=== PATIENT | male | born 1965 | race Caucasian/White ===

== ENCOUNTER 2023-12-06 11:29 | Inpatient (IN) | payer BC ==
[2023-12-06 12:40] LABS: Absolute Lymphocytes (CBC) 1.7 K/uL (0.7-4.9); Hematocrit 40.6 % (39.6-49.0); Lymphocytes % 31.6 % (15.3-44.8); MCV 92.3 fL (80-100); MPV 6.4 fL (7.6-11.3); Platelets 249 thou/uL (152-406)
[2023-12-06 13:02] LABS: Albumin 3.8 g/dL (3.4-5.0); Bilirubin Direct 0.3 mg/dL (0-0.2); Bilirubin Indirect, Calculated 0.5 mg/dL (0.2-0.8); Bilirubin Total 0.8 mg/dL (0.2-1.0); Potassium 4.1 mEq/L (3.5-5.1); Protein, Total 7.6 g/dL (6.4-8.2); Troponin High Sensitivity 4.7 pg/mL (<58.9)
--- NOTE | 2023-12-06 13:04 | EDPHYS ---
Physician Documentation [facility] Name: José Luis Bearden Age: 58 yrs Sex: Male : 1965 Arrival Date: 12/06/2023 Time: 11:29 Bed 8 Private MD: Jason Hankins ED Physician Markell Boggs HPI: 12/06 11:43 This 58 yrs old Male presents to ER via Ambulatory with complaints of Abnormal Lab ec2 Results. 11:43 Patient is sent in by PCP due to concern for hyponatremia, patient had outpatient labs ec2 which showed a sodium of 118. Patient reports no specific concerns. Denies any nausea or vomiting, denies diarrhea symptoms. Does report that he does regularly drink approximately 4 beers to a 12 pack a day.. Historical: - Allergies: 11:41 No Known Allergies; iw - PMHx: 11:41 Hypertensive disorder; iw - PSHx: 11:41 hernia; iw - Immunization history:: Adult Immunizations not up to date. - Social history:: Smoking status: Patient reports use of chewing tobacco. ROS: 11:43 Constitutional: as per hpi ec2 Exam: 11:43 Constitutional: GEN: NAD Head: atraumatic Eyes: EOMI Ears: External ears are ec2 normal. CV: regular rate LUNGS: no respiratory distress ABD: non-distended SKIN: no evidence of rashes MSK: no evidence of trauma NEURO: moves all extremities equally Vital Signs: 11:43 BP 127 / 80; Pulse 97; Resp 16; Pulse Ox 100% on R/A; Weight 82.55 kg; Height 5 ft. 10 iw in. ; Pain 0/10; 11:43 Body Mass Index 26.11 (82.55 kg, 177.8 cm) iw 11:43 Pain Scale: Adult iw MDM: 11:42 Patient medically screened. ec2 11:43 ED course: Patient arrives today for evaluation of hyponatremia. Examination remarkable ec2 for nontoxic and appears otherwise in no acute distress. Will obtain lab work, EKG and further assess the patient complaint.. 12:41 ED course: EKG independently reviewed and interpreted by me, shows normal sinus rhythm, ec2 rate 93, no acute ST segment elevations, nonconcerning intervals. Motion artifact noted.. 13:03 Data reviewed: vital signs. ED course: Metabolic profile shows hyponatremia with a ec2 sodium of 121, CBC reassuring, LFT reassuring, troponin within normal ranges. Will admit for hyponatremia. Discussed case with Dr. Hankins who will admit the patient. . 12/06 11:43 Order name: Basic Metabolic Panel; Complete Time: 13:03 ec2 12/06 11:43 Order name: CBC with Diff; Complete Time: 13:03 ec2 12/06 11:43 Order name: Troponin HS; Complete Time: 13:03 ec2 12/06 11:43 Order name: LFT's; Complete Time: 13:03 ec2 12/06 11:43 Order name: UAM ec2 12/06 11:43 Order name: Osmolality, Serum ec2 12/06 13:06 Order name: Ethanol ec2 12/06 13:13 Order name: CBC with Automated Diff EDMS 12/06 13:13 Order name: Comprehensive Metabolic Panel EDMS 12/06 13:13 Order name: Urinalysis w/ reflexes EDMS 12/06 13:54 Order name: Uric Acid ld1 12/06 13:54 Order name: Urine Sodium Random ld1 12/06 13:54 Order name: Urine Potassium Random ld1 12/06 13:54 Order name: Cortisol ld1 12/06 13:54 Order name: TSH ld1 12/06 11:43 Order name: EKG; Complete Time: 11:43 ec2 12/06 13:13 Order name: CONS Physician Consult EDNM 12/06 11:43 Order name: Cardiac monitoring; Complete Time: 12:48 ec2 12/06 11:43 Order name: EKG - Nurse/Tech; Complete Time: 12:23 ec2 12/06 11:43 Order name: IV Saline Lock; Complete Time: 12:23 ec2 12/06 11:43 Order name: Labs collected and sent; Complete Time: 12:31 ec2 12/06 11:43 Order name: O2 Per Protocol; Complete Time: 12:15 ec2 12/06 11:43 Order name: O2 Sat Monitoring; Complete Time: 12:15 ec2 Administered Medications: 13:12 Drug: NS 0.9% IV 500 ml IV at bolus once Route: IV; Rate: bolus; Site: right ld1 antecubital; Disposition Summary: 12/06/23 13:04 Hospitalization Ordered Notes: Hospitalization Status: Inpatient Admission ec2 Provider: Jason Hankins ec2 [facility] ec2 Condition: Stable ec2 Problem: new ec2 Symptoms: are unchanged ec2 Bed/Room Type: Standard ec2 Room Assignment: 217(12/06/23 13:17) [facility] Diagnosis - Hypo-osmolality and hyponatremia ec2 Forms: - Medication Reconciliation Form ec2 - SBAR form ec2 - Leadership Thank You Letter ec2 Signatures: Dispatcher [employer] Katherin Chung RN RN Marcela Mayer RN RN 1 Teresa Foley [facility] Markell Boggs MD MD ec2 Corrections: (The following items were deleted from the chart) 11:49 11:43 Patient is sent in by PCP due to concern for hyponatremia, patient had outpatient ec2 labs which showed a sodium of 118. Patient reports no specific concerns. Denies any nausea or vomiting, denies diarrhea symptoms, denies substance use.. ec2 13:17 13:04 ec2 [facility]
--- NOTE | 2023-12-06 13:04 | ER ---
Nurse's Notes [facility] Name: José Luis Bearden Age: 58 yrs Sex: Male : 1965 Arrival Date: 12/06/2023 Time: 11:29 Bed 8 Private MD: Jason Hankins Diagnosis: Hypo-osmolality and hyponatremia Presentation: 12/06 11:40 Chief complaint: Patient states: had blood work done yesterday and they said my sodium iw level was low, was told to come to ER and be admitted , per Dr. Hankins. 11:41 Coronavirus screen: At this time, the client does not indicate any symptoms associated iw with coronavirus-19. Ebola Screen: Patient negative for fever greater than or equal to 101.5 degrees Fahrenheit, and additional compatible Ebola Virus Disease symptoms Patient denies exposure to infectious person. Patient denies travel to an Ebola-affected area in the 21 days before illness onset. No symptoms or risks identified at this time. Initial Sepsis Screen: Does the patient meet any 2 criteria? No. Patient's initial sepsis screen is negative. Does the patient have a suspected source of infection? No. Patient's initial sepsis screen is negative. Risk Assessment: Do you want to hurt yourself or someone else? Patient reports no desire to harm self or others. Onset of symptoms was December 06, 2023. 11:41 Method Of Arrival: Ambulatory iw 11:41 Acuity: IVAN 3 iw Historical: - Allergies: 11:41 No Known Allergies; iw - PMHx: 11:41 Hypertensive disorder; iw - PSHx: 11:41 hernia; iw - Immunization history:: Adult Immunizations not up to date. - Social history:: Smoking status: Patient reports use of chewing tobacco. Screenin:32 [facility] ED Fall Risk Assessment (Adult) History of falling in the last 3 months, ld1 including since admission No falls in past 3 months (0 pts). Abuse screen: Denies threats or abuse. Denies injuries from another. Nutritional screening: No deficits noted. Tuberculosis screening: No symptoms or risk factors identified. Assessment: 12:32 General: Appears in no apparent distress. comfortable, Behavior is calm, cooperative, ld1 appropriate for age. Pain: Denies pain. Neuro: Level of Consciousness is awake, alert, obeys commands, Oriented to person, place, time, situation. Cardiovascular: Capillary refill < 3 seconds Patient's skin is warm and dry. Respiratory: Airway is patent Respiratory effort is even, unlabored. GI: Abdomen is flat, non-distended. : No signs and/or symptoms were reported regarding the genitourinary system. EENT: No signs and/or symptoms were reported regarding the EENT system. Derm: No signs and/or symptoms reported regarding the dermatologic system. Musculoskeletal: No signs and/or symptoms reported regarding the musculoskeletal system. Vital Signs: 11:43 BP 127 / 80; Pulse 97; Resp 16; Pulse Ox 100% on R/A; Weight 82.55 kg; Height 5 ft. 10 iw in. ; Pain 0/10; 11:43 Body Mass Index 26.11 (82.55 kg, 177.8 cm) iw 11:43 Pain Scale: Adult iw ED Course: 11:30 Patient arrived in ED. mr 11:31 Jason Hankins MD is Private Physician. mr 11:31 Markell Boggs MD is Attending Physician. ec2 11:41 Triage completed. iw 11:43 Arm band placed on. iw 12:15 Marcela Mayer RN is Primary Nurse. ld1 12:32 Patient has correct armband on for positive identification. Placed in gown. Bed in low ld1 position. Call light in reach. Side rails up X2. cardiac monitor on. Pulse ox on. NIBP on. Door closed. Noise minimized. Warm blanket given. 12:32 Inserted saline lock: 20 gauge in right antecubital area, using aseptic technique. ld1 Blood collected. 12:32 No provider procedures requiring assistance completed. ld1 12:39 EKG done, by ED staff. [email or web address] 13:04 Jason Hankins MD is Hospitalizing Provider. ec2 14:22 Patient admitted, IV remains in place. ld1 Administered Medications: 13:12 Drug: NS 0.9% IV 500 ml IV at bolus once Route: IV; Rate: bolus; Site: right ld1 antecubital; Medication: 12:32 VIS not applicable for this client. ld1 Outcome: 13:04 Decision to Hospitalize by Provider. ec2 14:21 Admitted to Med/surg accompanied by tech, via wheelchair, room 217, Report called to ld1 SUJATHA Contreras 14:21 Condition: stable 14:21 Instructed on the need for admit, 14:22 Patient left the ED. ld1 Signatures: Dolores Vargas, Evaristo Reg mr Katherin Richards RN RN iw Marcela Mayer RN RN ld1 Markell Boggs MD MD ec2 Timothy Barros [email or web address]
[2023-12-06] MEDS ORDERED: NA CHLORIDE 0.9% 500 ML ONE (13:10)
[2023-12-06 13:42] LABS: Absolute Lymphocytes (CBC) 1.7 K/uL (0.7-4.9); Hematocrit 38.7 % (39.6-49.0); Lymphocytes % 26.9 % (15.3-44.8); MPV 6.5 fL (7.6-11.3); Platelets 242 thou/uL (152-406); RBC Red Blood Cell Count 4.16 M/uL (4.33-5.43)
[2023-12-06 14:08] LABS: Albumin 3.6 g/dL (3.4-5.0); Bilirubin Total 0.9 mg/dL (0.2-1.0); Potassium 3.7 mEq/L (3.5-5.1); Protein, Total 7.3 g/dL (6.4-8.2)
[2023-12-06 14:35] LABS: Thyroid Stimulating Hormone 2.31 uIU/mL (0.358-3.740); Uric Acid 2.6 mg/dL (3.5-7.2)
[2023-12-06 15:08] VITALS: O2SAT 100
[2023-12-06 15:15] LABS: Specific Gravity 1.009 (1.005-1.030); Urine Bacteria None Seen /HPF (<20); Urine Bilirubin NEGATIVE (Negative); Urine Blood Negative (Negative); Urine Clarity Clear (Clear); Urine Color Light-Yellow (Yellow); Urine Crystals Unidentified Few /HPF (None Seen); Urine Glucose NEGATIVE (Negative); Urine Mucus Slight /HPF (None Seen); Urine Protein NEGATIVE (Negative); Urine RBC <5 /HPF (None Seen); Urine Urobilinogen Normal (Normal); Urine pH 6.5 (5.0-7.0)
[2023-12-06] MEDS: SODIUM CHLORIDE 1 GM TAB PO SCH (15:49)
[2023-12-06] MEDS: POTASSIUM CL 40 MEQ in NA CHLORIDE 0.9% 500 ML IV SCH (15:50)
[2023-12-06 16:13] VITALS: BMI 26.1
[2023-12-06] MEDS ORDERED: LORazepam 2 MG/ML VIAL IV PRN (17:13)
[2023-12-06 17:42] LABS: Albumin 3.7 g/dL (3.4-5.0); Bilirubin Total 1.1 mg/dL (0.2-1.0); Potassium 3.8 mEq/L (3.5-5.1); Protein, Total 7.3 g/dL (6.4-8.2)
--- NOTE | 2023-12-06 19:28 | CON ---
Date of Consultation: 12/06/2023 Consulting Physician: ER. Reason For Consultation: Hyponatremia. History Of Present Illness: This is a pleasant 58-year-old gentleman with significant past medical h istory of hypertension, on lisinopril, diagnosis 2 years back, osteoarthritis, status post local inje ction, heavy alcohol drinker, the patient known to have hyponatremia according to him and the patient medicating himself with salt tablet 2 g daily. The patient apparently had COVID few weeks ago and t reated himself with Tylenol and Advil 1 to 2 tablets daily. The patient started feeling weak and fat igue. For that reason, reported to the primary care. Primary care done labs, found sodium 118. For that reason, was referred to the hospital. The patient denied any dizziness. No nausea. No vomiti ng. No diarrhea. The patient denied taking any diuretic and as I mentioned, the patient has been on Advil and salt tablet. Past Medical History: 1.Hypertension. 2.Arthritis. 3.Hyponatremia. Allergies: NO KNOWN DRUG ALLERGY. Family History: Positive for hypertension. Social History: Active alcohol smoker. Denied drugs abuse. Surgical History: Local injection. Review of Systems: Head and Neck: No red eye. No ear pain. GI: No nausea. No vomiting. : No polyuria. No dysuria. No hematuria. CORPORATE LIBRARIAN: Not applicable. Respiratory: No shortness of breath. Has cough. Cardiovascular: No chest pain. Endocrine: No polydipsia. Skin: No rash. Neuro: Has weakness. Musculoskeletal: Generalized fatigue. Physical Examination: Vital Signs: When I saw the patient, blood pressure 127/80, pulse of 60, afebrile. Chest: Clear to auscultation. Heart: S1, S2 regular. Abdomen: Soft, nontender. Extremities: No edema. Neurologic: Alert. No focality. No tremor. Laboratory Data: At 13:29, hemoglobin 13.6. One hour before, hemoglobin 14.5. Sodium at 12 o'clock , 121, potassium 4.1, bicarb 27, BUN 4, creatinine 0.7, calcium 8.9. At 1:30, sodium 119, potassium 3.7, bicarb 24, BUN 3, creatinine 0.6, uric acid 2.6, calcium 8.4, albumin 3.6. Cortisol pending. T SH 2.3. Urinalysis and urine electrolyte still pending. The patient received 500 of normal saline. Assessment And Plan: 1.Hyponatremia, possible secondary to beer potomania/SIADH, supported with low uric acid and the his tory of treating himself with salt tablet and chronic hyponatremia. I am going to repeat the professor of chemistry ry and we will follow up. I am going to start the patient on salt tablet 1 g every 6 hours and we wi ll follow up the patient. We will send for TSH and cortisol. Hold nonsteroidal. Hold lisinopril. 2.Hypertension with the presence of hyponatremia. Hold lisinopril. We will start the patient on be ta-jose. 3.Hypokalemia. We will supplement. Time spent examining the patient [id number], reviewing data, lab, and radiology, placing order, dis cussing the case with the patient, discussing the case with the production team member including hospitalist and nursing staff in the ER more than 75 minutes. LILLIANA Voice ID: [id number] Report ID: [id number]
[2023-12-06] MEDS: PROPRANOLOL HCL 10 MG TAB PO SCH (20:23)
[2023-12-06] MEDS: ZOLPIDEM TARTRATE 5 MG TABLET PO PRN (20:23)
[2023-12-07 04:04] LABS: Albumin 3.6 g/dL (3.4-5.0); Phosphorus 2.9 mg/dL (2.5-4.9); Potassium 4.3 mEq/L (3.5-5.1)
[2023-12-07] MEDS: lisinopriL 20 MG TAB PO SCH (07:59)
--- NOTE | 2023-12-07 10:59 | P.PN ---
Subjective Date of Service: 12/07/23 Subjective: Other (No complaints of nausea, vomiting, diarrhea, or pain. He reports being able to eat more solid food since hospital admission.) Physical Examination - Vital Signs Temperature: 97.2 F Blood Pressure: 127/78 Pulse: 68 Respirations: 143 Pulse Ox (%): 98 - Physical Exam General: In no apparent distress HEENT: Atraumatic, Normocephalic Neck: Supple, JVD not distended Respiratory: Other (Symmetric chest expansion) Cardiovascular: No rubs, No murmurs Gastrointestinal: Soft and benign, No rebound Musculoskeletal: No clubbing Integumentary: No warmth Neurological: Normal speech, Normal tone Lymphatics: No axilla or inguinal lymphadenopathy Urinary: Other (no bladder distention) External genitalia: Deferred Rectal: Deferred - Studies Laboratory Data (last 24 hrs) 12/06/23 12/06/23 12:28 12:28 WBC 5.30 Hgb 14.5 Hct 40.6 Plt Count 249 Sodium 121 L Potassium 4.1 BUN 4 L Creatinine 0.78 Glucose 88 Total Bilirubin 0.8 AST 80 H ALT 73 H Alkaline Phosphatase 75 Assessment And Plan - Plan # Hypotonic, euvolemic, chronic, symptomatic mod to severe hyponatremia / appropriate ADH release + low solute intake, vs underlying true SIADH vs SLN Serum Na 124 this AM Urine chem on 12/06 showed high ADH state / appropriate ADH release, not consistent w/ beer potomania BUN & serum uric acid both low. F/u random urine uric acid & creatinine to calculate fractional excretion of uric acid, to assess for underlying true SIADH or SLN. The low BUN & hypouricemia may just be from his poor nutritional status. Howevere, if hyperuricosuria is present, will need to recheck serum uric acid level & FE uric acid once hypoNa is fully corrected to differentiate b/w true SIADH vs SLN. True SIADH requires further imaging to identify any chronic process or mass. SLN requires aldose-reductase inhibitor therapy w/c is only available in experimental labs. Renal fxn wnl BNP wnl. Start NS gtt 100 cc/hr. Increase NaCl tab 2g po from bid to tid. Encourage adeq po solid food intake tid, at least half a plate per meal. If these measures are not enough to raise serum Na to > 130 meq/L, give Tolvaptan next. Recheck urine chem tomorrow to reassess hypoNa physiology KCl repletion prn to keep serum K at 4.0 or higher Mg repletion prn to avoid hypoMg Restrict free water intake to 1.5L/day until serum Na is consistently > 130 meq/L Encourage complete ETOH cessation Check lytes q6h Serum Na rise no more than 6-8 meq/L per 24h to avoid ODS Serum Na goal long-term > 130 meq/L to avoid imbalance/falls # Htn Cont current med regimen # HypoK KCl repletion as above # ETOH abuse Encourage ETOH cessation as above
[2023-12-07 12:42] LABS: Magnesium 2.2 mg/dL (1.6-2.4); Potassium 3.7 mEq/L (3.5-5.1)
[2023-12-07 15:35] LABS: UR PROTEIN 20.5 mg/dL (<11.9); Urine Protein/Creatinine Ratio 0.13 ratio (<0.15)
[2023-12-07] MEDS: POTASSIUM 25 MEQ EFFERV TAB PO ONE (15:54)
[2023-12-07] MEDS: NA CHLORIDE 0.9% 1,000 ML IV SCH ×2 (15:54→23:45)
--- NOTE | 2023-12-07 21:43 | HP ---
Date of Admission: 12/06/2023 Entrance Complaint: Fatigue and weakness. History Of Present Illness: The patient states his present history is back to COVID, which he had a couple of weeks ago. He stated he felt he was , had not obtained any blood work recently f or numerous reasons, and was awaiting doing his annual blood work, sodium was recorded as 118. He did say he was rather weak. felt he should be hospitalized for observation and t reatment. Past History: The patient has a long history of borderline hyponatremia, running in the 129 to 132 r iraida. Has been on anywhere from four 1 g tablets with normal saline to . States he has be en taking 2 as well as normal intake of water and soft drinks. He also has continued to have his usu al alcohol intake. The patient has hypertension, controlled on lisinopril. As mentioned, he has hyp onatremia; however, it has never been at this level. Social History: The patient does consume alcohol. Nonsmoker, but chews. Family History: Cardiovascular disease. Physical Examination: General: The patient is a well-built middle-aged male. Vital Signs: Stable vital signs. Head and Neck: Normocephalic. Pupils equal, react to light. ENT negative. Chest: Clear to P and A. Cardiovascular: PMI, midclavicular line. Heart sounds normal. Peripheral pulses present and equal bilaterally. Abdomen: No organomegaly. Bowel sounds present. Extremities: Good tone and movement bilaterally. Slightly dehydrated. Rectal: Deferred. Impression: Hyponatremia. Hypertension, controlled. Plan: The patient will be admitted, given some normal saline, started on salt. Consultation will be obtained with Nephrology. Depending on the results of his treatment, the patient will be hospitaliz ed for 1 or 2 days. HR/MODL Voice ID: [id number]
--- NOTE | 2023-12-07 21:49 | PN ---
Date of Progress Note: 12/07/2023 The patient states he feels better today; however, he still is weak, but he states that may just be b ecause he has not been doing a lot, used to do some physical activity. He is encouraged to walk arou nd, which he says he has been doing in his room and voiding without a problem. I discussed with Neph rology, felt we will continue on slow improvement of his levels, continue his evaluation and probably ready to be discharged in the a.m. if his sodium was up to 130. HR/MODL Voice ID: [id number] Report ID: [id number]
[2023-12-07 23:29] LABS: Potassium 4.3 mEq/L (3.5-5.1)
[2023-12-07] MEDS: SODIUM CHLORIDE 1 GM TAB PO STA (23:45)
[2023-12-08 04:25] LABS: Albumin 3.2 g/dL (3.4-5.0); Phosphorus 3.3 mg/dL (2.5-4.9); Potassium 4.2 mEq/L (3.5-5.1)
[2023-12-08] MEDS: NA CHLORIDE 0.9% 1,000 ML IV SCH (06:00)
[2023-12-08] MEDS: ACETAMINOPHEN 500 MG TAB PO PRN (08:52)
[2023-12-08] MEDS: SODIUM CHLORIDE 1 GM TAB PO SCH (08:54)
[2023-12-08] MEDS: TOLVAPTAN 15 MG TABLET PO ONE (08:55)
[2023-12-08 12:32] VITALS: BP 160/83; TEMP 97.4
[2023-12-08] MEDS ORDERED: PROPRANOLOL HCL 10 MG TAB PO SCH (15:29)
[2023-12-08 16:37] LABS: Potassium 3.5 mEq/L (3.5-5.1)
--- NOTE | 2023-12-09 00:44 | PN ---
Date of Progress Note: 12/08/2023 Subjective: The patient came to the hospital because of generalized weakness. He denied nausea, vom iting, diarrhea, or pain. Review of Systems: Denies chest pain, palpitations. Denies nausea, vomiting. : Denies dysuria, hematuria. Objective: General: The patient is awake, alert, follows commands. Eyes: Anicteric sclerae. EOMI. Ears, Nose, mouth and Throat: Oral mucosa moist. No pallor. Neck: Supple. No bruits. Extremities: No edema. No clubbing. No cyanosis. 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 Less likely patient has sodium losing nephropathy. Serum sodium level was 124 yesterday and gradually improved. The patient had workup done for hyponatremia and urine ch emistry done on December 06, showed affect of high ADH, appropriate ADH release not consistent with b eer potomania. BUN and serum uric acid both were low. Followup with random uric acid and creatinine level to calculate fractional excretion of uric acid was ordered to assess for underlying true SIADH versus SLN. The low BUN and hypouricemia may be due to poor nutrition. The patient may have deplet ional hyponatremia, although he is responding to treatment, he is taking sodium chloride tablet twice a day and he will follow up with Nephrology outpatient. Potassium repletion was recommended to main tain potassium at level within normal range. Restriction of free water intake was recomme nded to limit to 1.5 a day and p.o. serum creatinine level is greater than 130 mg mEq per L. Encoura ged to adhere to complete alcohol cessation. Serum sodium target range was established from 6-8 mEq/ L per 24 hours. Serum sodium was recommended to maintain over . 2.Hypertension. Continue current regimen. 3.Alcohol abuse. Encouraged alcohol cessation. Further recommendation from primary team and attend ing. JOVANA/ADELAIDA Voice ID: [id number] Report ID: [id number]
--- NOTE | 2023-12-10 11:07 | EKG ---
Test Date: 2023-12-06 Test Time: 12:36:32 [employer] Shell [employer]inder: KASSIE MEASUREMENT RESULTS: Intervals: Rate: 93 RI: 196 QRSD: 80 QT: 354 QTc: 440 [facility]: P: 43 RI: 196 QRS: 16 T: 36 INTERPRETIVE STATEMENTS: Normal sinus rhythm Normal ECG No previous ECG available for comparison Electronically Signed On 12-10-23 11:00:47 CELLULAR EQUIPMENT REPAIRER by Arjun Diaz
== END 2023-12-08 18:54 | disposition home health service (06) | DRG 645 ==
LOC: ER 11:29 → ERHOLD 13:07 → 2ND 13:40
PROVIDERS: ADMIT Family Medicine; ATTEND Family Medicine
DX: E22.2 Syndrome of inappropriate secretion of antidiuretic hormone (principal); I10 Essential (primary) hypertension; E87.6 Hypokalemia; F10.10 Alcohol abuse, uncomplicated; M19.90 Unspecified osteoarthritis, unspecified site; F17.220 Nicotine dependence, chewing tobacco, uncomplicated; Z86.16 Personal history of COVID-19; Z79.899 Other long term (current) drug therapy
CPT/HCPCS: 36415; 36569; 80048; 80051; 80053; 80069; 80076; 81001; 82077; 82533; 82570; 83735; 83880; 83930; 84132; 84156; 84300; 84443; 84484; 84550; 85025; 93005; 99285; J3480; J7030; J7040; J8499